=== PATIENT | male | born 1985 ===

== ENCOUNTER 2018-06-07 21:27 | Emergency (ER) | payer OTHER ==
[2018-06-07 21:39] VITALS: O2SAT 98
--- NOTE | 2018-06-07 21:54 | ED PDOC ---
HPI: Back Time Seen by Provider: 06/07/18 21:39 Chief Complaint (Nursing): Back Pain Chief Complaint (Provider): Back Pain History Per: Patient History/Exam Limitations: no limitations Onset/Duration Of Symptoms: Days (x1 week) Current Symptoms Are (Timing): Still Present Additional Complaint(s): 32 year old male presents to the ED for evaluation of left lower back pain for the past week radiating into his left leg. 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 He was evaluated two days ago and given a script for an MRI and 800mg Ibuprofen and 5mg Flexeril, which he last took tonight at 1700 with no relief. He presents today requesting the MRI be done and to receive stronger pain meds as he feels no r elief with the prescribed medication. Otherwise denies prior back injury / surgery, fever, numbness, weakness, saddle anesthesia, incontinence, bowel dysfunction, nausea, vomiting, abdominal pain, and shortness of breath, chest pain. PMD: Quinn King Past Medical History Reviewed: Historical Data, Nursing Documentation, Vital Signs Vital Signs: Last Vital Signs Temp 98.2 F 06/07/18 21:34 Pulse 63 06/07/18 21:34 Resp 16 06/07/18 21:34 BP 157/95 H 06/07/18 21:34 Pulse Ox 98 06/07/18 21:34 - Medical History PMH: No Chronic Diseases - Surgical History Surgical History: No Surg Hx - Family History Family History: States: Unknown Family Hx - Home Medications Home Medications: Ambulatory Orders Medication Instructions Recorded Acetaminophen [Acetaminophen 8 650 mg PO Q8 PRN #21 tablet.er 06/07/18 Hour] - Allergies Allergies/Adverse Reactions: Allergies Allergy/AdvReac Type Severity Reaction Status Date / Time No Known Allergies Allergy Verified 06/07/18 21:34 Review of Systems ROS Statement: Except As Marked, All Systems Reviewed And Found Negative Constitutional: Negative for: Fever Cardiovascular: Negative for: Chest Pain Respiratory: Negative for: Shortness of Breath Gastrointestinal: Negative for: Nausea, Vomiting, Abdominal Pain Genitourinary Male: Negative for: Incontinence Musculoskeletal: Positive for: Back Pain (left lower radiating into left leg) Neurological: Negative for: Weakness, Numbness Physical Exam - Reviewed Nursing Documentation Reviewed: Yes Vital Signs Reviewed: Yes - Physical Exam Comments: GENERAL APPEARANCE: Patient is awake, alert, oriented x 3, in no acute distress. Resting comfortably. SKIN: Warm, dry; (-) cyanosis. EYES: (-) conjunctival pallor. ENMT: Mucous membranes moist. Airway patent, (-) stridor. NECK: Supple, FROM CHEST AND RESPIRATORY: (-) rales, (-) rhonchi, (-) wheezes; breath sounds equal bilaterally. Respirations nonlabored. HEART AND CARDIOVASCULAR: (-) irregularity ABDOMEN AND GI: Soft; (-) tenderness BACK: (+) left paralumbar tenderness, (+) left sciatic notch tenderness (-) direct bony tenderness, (-) deformity. EXTREMITIES: (-) deformity. NEURO AND PSYCH: Mental status as above. Gait: limping in ED. Intact sensation bilaterally; normal strength in extension of the knees, plantar and dorsiflexion of the toes. Speech: clear (-) facial asymmetry - ECG O2 Sat by Pulse Oximetry: 98 (RA) Pulse Ox Interpretation: Normal Medical Decision Making Medical Decision Making: Initial Impression: acute back pain, likely sciatica secondary to herniated disc Time: 2149 Initial Plan: --Valium 5mg PO (not driving home) --Re-evaluation 2234 Repeat BP: 138/81 Repeat HR: 52 On re-evaluation, patient reports improvement of symptoms. On exam, patient remains AAOx3, in no acute distress. Gait steady without assistance. Vitals stable. Lab/Diagnostic results d/w the patient in great detail. Diagnosis of acute back pain, likely sciatica/radiculopathy d/w the patient. Based on history, exam and diagnostic results, plan will be for outpatient follow up with ortho. Patient instructed to follow-up with pmd / referral provided / the clinic in 1- 2 days without fail. Advised to take medication as prescribed. Return to the emergency room at any time for any new or worsening symptoms. Patient states he fully agrees with and understands discharge instructions. States that he agrees with the plan and disposition. Verbalized and repeated discharge instructions and plan. I have given the patient opportunity to ask any additional questions. Scribe Attestation: Documented by Florence Anguiano, acting as a scribe for Charissa Espinoza PA-C. Provider Scribe Attestation: All medical record entries made by the Scribe were at my direction and personally dictated by me. I have reviewed the chart and agree that the record accurately reflects my personal performance of the history, physical exam, medical decision making, and the department course for this patient. I have also personally directed, reviewed, and agree with the discharge instructions and disposition. Disposition - Clinical Impression Clinical Impression: Low back pain, Sciatica of left side, Radiculopathy of leg - Patient ED Disposition Is Patient to be Admitted: No Counseled Patient/Family Regarding: Studies Performed, Diagnosis, Need For Followup, Rx Given - Disposition Referrals: Joe Anderson MD [Medical Doctor] - Disposition: Routine/Home Disposition Time: 22:35 Condition: STABLE Additional Instructions: Continuar con los medicamentos actuales para el dolor. La atencin mdica de emergencia que recibi hoy se dirigi a larissa sntomas agudos. Si le recetaron algn medicamento, llnelo y tmelo segn las i ndicaciones. Los sntomas pueden tardar varios callahan en resolverse. Regrese al Departamento de Emergencias si larissa sntomas empeoran, no mejoran o si tiene otros problemas. Comunquese con al mdico dentro de 2 callahan para jen nueva evaluacin y valentin un seguimiento o llame a daniele de los mdicos / clnicas a los que cast sido referido y que figuran en el formulario de Informacin de visita al paciente que se incluye en al paquete de melissa. Lleve todos los documentos que le entregaron al momento del melissa junto con todos los medicamentos que est tomando para al visita de seguimiento. Nuestro tratamiento no puede reemplazar la atencin mdica continua por parte de un proveedor de atencin primaria (PCP) fuera del departamento de emergencias. Prescriptions: Acetaminophen [Acetaminophen 8 Hour] 650 mg PO Q8 PRN #21 tablet.er PRN Reason: Pain, Moderate (4-7) Instructions: Sciatica, Low Back Pain in Adults, Sciatica Exercises, Radiculopathy Forms: [employer] (Micronesian) Print Language: ESTONIAN - POA Present On Arrival: None
[2018-06-07 22:41] VITALS: BP 138/81; PULSE 52; RESP 18; TEMP 98
== END 2018-06-07 22:40 | disposition home or self-care (01) ==
LOC: H.ER 21:27
DX: M54.42 Lumbago with sciatica, left side (principal); M54.16 Radiculopathy, lumbar region